=== PATIENT | male | born 1975 | race Hispanic/Latino ===

== ENCOUNTER 2021-05-07 08:36 | Outpatient (CLI) | payer OTHER | END 2021-05-07 08:37 | disposition home or self-care (01) | LOC: BICULT 08:36 | PROVIDERS: ATTEND Internal Medicine Gastroenterology | DX: R94.5 Abnormal results of liver function studies (principal); K72.90 Hepatic failure, unspecified without coma; I85.00 Esophageal varices without bleeding; F10.10 Alcohol abuse, uncomplicated; R16.1 Splenomegaly, not elsewhere classified; R18.8 Other ascites; R93.2 Abnormal findings on diagnostic imaging of liver and biliary tract | CPT/HCPCS: 76705 ==

== ENCOUNTER 2021-05-11 08:12 | Outpatient (CLI) | payer SELFPAY ==
[2021-05-11 21:09] LABS: SARS-CoV-2 PCR by NAA Not Detected (NotDetected)
== END 2021-05-11 08:13 | disposition home or self-care (01) ==
LOC: LABBT 08:12
PROVIDERS: ATTEND Internal Medicine Gastroenterology
DX: Z01.812 Encounter for preprocedural laboratory examination (principal); Z20.822 Contact with and (suspected) exposure to COVID-19
CPT/HCPCS: U0003; U0005

== ENCOUNTER 2021-05-16 06:13 | Day surgery (SDC) | payer OTHER, SELFPAY ==
[2021-05-15 13:31] VITALS: BMI 26.6
[2021-05-16] MEDS ORDERED: PROPOFOL 200 MG/20 ML VIAL ONE (08:26)
[2021-05-16] MEDS ORDERED: Lidocaine 1% PF 5 ML VIAL ONE (08:26)
[2021-05-16 09:25] LABS: #Eosinphils 0.1 thou/uL (0.0-0.7); #Lymphocytes 0.7 thou/uL (1.20-3.40); #Monocytes 0.2 thou/uL (0.11-0.59); #Neutrophils 1.4 thou/uL (1.40-6.50); %Basophils 1.4 % (0.0-1.0); %Eosinophils 5.6 % (0.0-10.0); %Lymphocytes 28.5 % (21.0-51.0); %Monocytes 7.2 % (0.0-10.0); %Neutrophils 57.4 % (42.0-75.0); Reflex for Review?? YES
[2021-05-16 09:26] LABS: Hemoglobin 9.6 g/dL (14.0-18.0); Mean Corpuscular HGB CONC 34.5 g/dL (32.0-36.0); Mean Corpuscular Hemoglobin 30.9 pg (27.0-31.0); Mean Corpuscular Volume 89.4 fL (78.0-98.0); Platelet Count 27 thou/uL (130-400); RBC Distribution Width 12.6 % (11.5-14.5); White Blood Cell (WBC) Count 2.5 thou/uL (4.8-10.8)
[2021-05-16 09:34] LABS: INR-International Normal Ratio 1.5; Prothrombin Time 18.1 sec (12.0-14.7)
[2021-05-16 09:35] LABS: PTT 41.9 sec (22.9-36.1)
[2021-05-16 09:46] LABS: ALT (SGPT) 32 U/L (8-55); AST (SGOT) 54 U/L (5-34); Albumin 2.5 g/dL (3.5-5.0); Alkaline Phosphatase 181 U/L (40-110); Anion Gap 9 mmol/L (10-20); BUN (Urea Nitrogen) 10 mg/dL (8.9-20.6); Bilirubin, Total 2.2 mg/dL (0.2-1.2); Calc. Creatinine Clearance 158 mL/min (70-130); Calcium 8.1 mg/dL (7.8-10.44); Carbon Dioxide 22 mmol/L (22-29); Chloride 111 mmol/L (98-107); Globulin 3.6 g/dL (2.4-3.5); Glucose 105 mg/dL (70-105); Potassium 3.9 mmol/L (3.5-5.1); Protein, Total 6.1 g/dL (6.0-8.3); Sodium 138 mmol/L (136-145)
[2021-05-16 10:41] LABS: Polychromasia SLIGHT = 2-3 cells (100X) (0-2/hpf)
[2021-05-16 10:42] LABS: Ovalocytes SLIGHT = 2-5 cells (100X) (0-1/hpf); Platelet Morphology Comment Appears Decreased
== END 2021-05-16 09:45 | disposition home or self-care (01) ==
LOC: SDC 06:13
PROVIDERS: ATTEND Internal Medicine Gastroenterology
PROC: 06L38CZ Occlusion of Esophageal Vein with Extraluminal Device, Via Natural or Artificial Opening Endoscopic (ICD-10-PCS; principal; 2021-05-16)
DX: I85.00 Esophageal varices without bleeding (principal); K76.6 Portal hypertension; K31.89 Other diseases of stomach and duodenum; Z79.899 Other long term (current) drug therapy
CPT/HCPCS: 36415; 80053; 85025; 85060; 85610; 85730; J2704

== ENCOUNTER 2021-11-24 08:57 | Inpatient (IN) | payer SELFPAY ==
[2021-11-24 09:46] LABS: #Eosinphils 0.2 thou/uL (0.0-0.7); #Lymphocytes 0.8 thou/uL (1.20-3.40); #Monocytes 0.2 thou/uL (0.11-0.59); #Neutrophils 1.2 thou/uL (1.40-6.50); %Eosinophils 7.1 % (0.0-10.0); %Lymphocytes 35.1 % (21.0-51.0); %Monocytes 7.1 % (0.0-10.0); %Neutrophils 50.7 % (42.0-75.0); Hemoglobin 6.8 g/dL (14.0-18.0); Mean Corpuscular HGB CONC 30.3 g/dL (32.0-36.0); Mean Corpuscular Hemoglobin 21.5 pg (27.0-31.0); Mean Corpuscular Volume 71.2 fL (78.0-98.0); RBC Distribution Width 17.2 % (11.5-14.5); Red Blood Cell (RBC) Count 3.14 mill/uL (4.70-6.10); White Blood Cell (WBC) Count 2.3 thou/uL (4.8-10.8)
[2021-11-24 09:59] LABS: ALT (SGPT) 28 U/L (8-55); AST (SGOT) 51 U/L (5-34); Albumin 2.5 g/dL (3.5-5.0); Alkaline Phosphatase 153 U/L (40-110); Anion Gap 10 mmol/L (10-20); BUN (Urea Nitrogen) 6 mg/dL (8.9-20.6); Bilirubin, Total 2.5 mg/dL (0.2-1.2); CK (CPK) 168 U/L (30-200); Calc. Creatinine Clearance 0 mL/min (70-130); Calcium 7.5 mg/dL (7.8-10.44); Carbon Dioxide 20 mmol/L (22-29); Chloride 112 mmol/L (98-107); Globulin 3.2 g/dL (2.4-3.5); Glucose 88 mg/dL (70-105); Hypochromia SLIGHT = 6-15 cells (100X) (0-5/hpf); Lipase 51 U/L (8-78); MDiff Complete? YES; Mean Platelet Volume 7.7 fL (7.4-10.4); Microcytosis SLIGHT = 6-15 cells (100X) (0-5/hpf); Platelet Count 31 thou/uL (130-400); Platelet Morphology Comment Appears Decreased; Polychromasia SLIGHT = 2-3 cells (100X) (0-2/hpf); Potassium 3.7 mmol/L (3.5-5.1); Protein, Total 5.7 g/dL (6.0-8.3); Sodium 138 mmol/L (136-145)
[2021-11-24 10:14] LABS: Bilirubin Negative (Negative); Blood, Urine Negative (Negative); Clarity Clear (Clear); Glucose, Urine (Dipstick) Normal (Negative); Ketone, Urine Negative (Negative); Leukocyte Negative Leu/uL (Negative); Nitrite Negative (Negative); Protein, Urine (Dipstick) Negative (Neg-Trace); Specific Gravity, Urine 1.019 (1.002-1.036); Urobilinogen 6 mg/dL (Less than 2)
[2021-11-24] MEDS ORDERED: Calcium Carbonate 500 MG ChewTAB PO PRN (11:14)
[2021-11-24] MEDS ORDERED: Ondansetron PF 4 MG/2 ML Vial IVP PRN (11:14)
[2021-11-24] MEDS ORDERED: Senokot S 8.6-50 MG TAB PO PRN (11:14)
[2021-11-24] MEDS ORDERED: Pantoprazole 40 MG VIAL ONE (12:38)
[2021-11-24 14:46] VITALS: BMI 29.9
[2021-11-24 15:15] LABS: Reticulocyte Count 2.6 % (0.5-1.5)
[2021-11-24 15:17] LABS: Hemoglobin 7.3 g/dL (14.0-18.0); Platelet Count 30 thou/uL (130-400)
[2021-11-24 15:21] LABS: INR-International Normal Ratio 1.8; Prothrombin Time 20.9 sec (12.0-14.7)
[2021-11-24 15:26] LABS: Iron 34 ug/dL (65-175); Iron Binding Capacity, Total 343 mcg/dL (261-462)
[2021-11-24 15:50] LABS: Ferritin 7.73 ng/mL (22-322)
[2021-11-24 19:02] LABS: Hemoglobin 6.6 g/dL (14.0-18.0)
[2021-11-24] MEDS ORDERED: GoLYTELY 4,000 ml Bottle PO SCH (20:15)
[2021-11-24] MEDS ORDERED: Phytonadione 10 MG in Sodium Chloride 0.9% 50 ML IVPB SCH (20:15)
[2021-11-24] MEDS: Pantoprazole 40 MG VIAL IVP SCH (20:20)
[2021-11-24 21:35] LABS: Hemoglobin 6.5 g/dL (14.0-18.0); Platelet Count 27 thou/uL (130-400)
[2021-11-25 04:51] LABS: ALT (SGPT) 30 U/L (8-55); AST (SGOT) 50 U/L (5-34); Albumin 2.5 g/dL (3.5-5.0); Alkaline Phosphatase 147 U/L (40-110); Anion Gap 11 mmol/L (10-20); BUN (Urea Nitrogen) 8 mg/dL (8.9-20.6); Bilirubin, Total 2.9 mg/dL (0.2-1.2); Calc. Creatinine Clearance 155 mL/min (70-130); Calcium 7.7 mg/dL (7.8-10.44); Carbon Dioxide 20 mmol/L (22-29); Chloride 112 mmol/L (98-107); Globulin 3.2 g/dL (2.4-3.5); Glucose 87 mg/dL (70-105); Potassium 4.4 mmol/L (3.5-5.1); Protein, Total 5.7 g/dL (6.0-8.3); Sodium 139 mmol/L (136-145)
[2021-11-25 05:16] LABS: #Eosinphils 0.2 thou/uL (0.0-0.7); #Monocytes 0.2 thou/uL (0.11-0.59); #Neutrophils 1.4 thou/uL (1.40-6.50); %Basophils 0.3 % (0.0-1.0); %Eosinophils 8.8 % (0.0-10.0); %Lymphocytes 35.2 % (21.0-51.0); %Neutrophils 48.7 % (42.0-75.0); Anisocytosis SLIGHT = 6-15 cells (100X) (0-5/hpf); Hemoglobin 7.6 g/dL (14.0-18.0); MDiff Complete? YES; Mean Corpuscular HGB CONC 30.3 g/dL (32.0-36.0); Mean Corpuscular Hemoglobin 22.4 pg (27.0-31.0); Mean Corpuscular Volume 74.1 fL (78.0-98.0); Mean Platelet Volume 5.8 fL (7.4-10.4); Ovalocytes SLIGHT = 2-5 cells (100X) (0-1/hpf); Platelet Count 34 thou/uL (130-400); Platelet Morphology Comment Appears Decreased; RBC Distribution Width 19.7 % (11.5-14.5); White Blood Cell (WBC) Count 2.8 thou/uL (4.8-10.8)
[2021-11-25 07:30] LABS: SARS-CoV-2 NAA Rapid Test Not Detected (NotDetected)
[2021-11-25 08:57] LABS: Iron 26 ug/dL (65-175); Iron Binding Capacity, Total 350 mcg/dL (261-462)
[2021-11-25] MEDS ORDERED: Lidocaine 1% PF 5 ML VIAL ONE (10:00)
[2021-11-25] MEDS ORDERED: PROPOFOL 200 MG/20 ML VIAL ONE (10:09)
[2021-11-25] MEDS: Pantoprazole 40 MG VIAL IVP SCH ×2 (11:28→19:47)
[2021-11-25 13:43] LABS: Hemoglobin 7.5 g/dL (14.0-18.0); Platelet Count 24 thou/uL (130-400)
[2021-11-25] MEDS ORDERED: Iron, Sodium Ferric Gluconate 250 MG in Sodium Chloride 0.9% 250 ML 250 ML IVPB SCH (15:15)
[2021-11-25] MEDS: Rifaximin 550 MG TAB PO SCH (19:47)
[2021-11-26 04:49] LABS: #Eosinphils 0.2 thou/uL (0.0-0.7); #Lymphocytes 0.8 thou/uL (1.20-3.40); #Monocytes 0.2 thou/uL (0.11-0.59); #Neutrophils 2.1 thou/uL (1.40-6.50); %Basophils 0.6 % (0.0-1.0); %Eosinophils 6.6 % (0.0-10.0); %Monocytes 7.1 % (0.0-10.0); %Neutrophils 61.8 % (42.0-75.0); Hemoglobin 7.5 g/dL (14.0-18.0); Hypochromia SLIGHT = 6-15 cells (100X) (0-5/hpf); MDiff Complete? YES; Mean Corpuscular HGB CONC 30.1 g/dL (32.0-36.0); Mean Corpuscular Hemoglobin 22.2 pg (27.0-31.0); Mean Corpuscular Volume 73.7 fL (78.0-98.0); Mean Platelet Volume 5.7 fL (7.4-10.4); Microcytosis SLIGHT = 6-15 cells (100X) (0-5/hpf); Platelet Count 35 thou/uL (130-400); Platelet Morphology Comment Appears Decreased; RBC Distribution Width 18.8 % (11.5-14.5); Red Blood Cell (RBC) Count 3.39 mill/uL (4.70-6.10); White Blood Cell (WBC) Count 3.4 thou/uL (4.8-10.8)
[2021-11-26] MEDS ORDERED: Iron Sucrose Complex 200 MG in Sodium Chloride 0.9% 100 ML IVPB SCH (08:00)
[2021-11-26] MEDS ORDERED: Spironolactone 25 MG TAB PO SCH (08:00)
[2021-11-26] MEDS ORDERED: Iron, Sodium Ferric Gluconate 250 MG in Sodium Chloride 0.9% 250 ML 250 ML IVPB SCH (08:00)
[2021-11-26] MEDS ORDERED: Sodium Bicarbonate 2.5 MEQ/5 ML VIAL ONE (08:47)
[2021-11-26] MEDS ORDERED: Lidocaine 1% PF 5 ML VIAL ONE (08:47)
[2021-11-26] MEDS ORDERED: Furosemide 20 MG TAB PO SCH (09:00)
[2021-11-26] MEDS: Pantoprazole 40 MG VIAL IVP SCH (09:42)
[2021-11-26] MEDS: Rifaximin 550 MG TAB PO SCH (09:42)
[2021-11-26 11:18] LABS: RBC Count-Automated (BF) 813 /cu.mm; WBC/Nucleated-Auto (BF) 93 /cu.mm
[2021-11-26 11:32] LABS: BF Color Yellow; Body Fluid Source Ascites Body Fluid; Clarity Hazy (Clear); Tube # EDTA
[2021-11-26 12:12] LABS: BF Segmented Neutrophils 2 %; Cell Count Non Hematic 48 %; Eosinophils 1 %; Lymphocytes 49 %
[2021-11-26 13:25] VITALS: BP 121/70; TEMP 97.6
== END 2021-11-26 16:06 | disposition home or self-care (01) | DRG 809 ==
LOC: ERS 08:57 → 2NO 10:51
PROVIDERS: ADMIT Family Medicine; ATTEND Internal Medicine
PROC: 30233N1 Transfusion of Nonautologous Red Blood Cells into Peripheral Vein, Percutaneous Approach (ICD-10-PCS; principal; 2021-11-24)
PROC: 0DBM8ZZ Excision of Descending Colon, Via Natural or Artificial Opening Endoscopic (ICD-10-PCS; 2021-11-25)
PROC: 0DJ08ZZ Inspection of Upper Intestinal Tract, Via Natural or Artificial Opening Endoscopic (ICD-10-PCS; 2021-11-25)
PROC: 0W9G3ZX Drainage of Peritoneal Cavity, Percutaneous Approach, Diagnostic (ICD-10-PCS; 2021-11-26)
DX: D61.818 Other pancytopenia (principal); K76.6 Portal hypertension; I85.10 Secondary esophageal varices without bleeding; K92.2 Gastrointestinal hemorrhage, unspecified; K70.31 Alcoholic cirrhosis of liver with ascites; Z20.822 Contact with and (suspected) exposure to COVID-19; F10.10 Alcohol abuse, uncomplicated; D50.9 Iron deficiency anemia, unspecified; K31.89 Other diseases of stomach and duodenum; Z79.899 Other long term (current) drug therapy; Z98.890 Other specified postprocedural states; Z87.891 Personal history of nicotine dependence
CPT/HCPCS: 36415; 36430; 49083; 71045; 76705; 80053; 81003; 82042; 82105; 82140; 82274; 82550; 82607; 82728; 82746; 83540; 83550; 83615; 83690; 84157; 84484; 85025; 85046; 85060; 85610; 86850; 86900; 86901; 87070; 87205; 88305; 89051; 93005; 96374; C9113; J2704; J2916; J3430; J7050; P9016; U0002; U0003; U0005

== ENCOUNTER 2022-01-22 15:49 | Outpatient (CLI) | payer SELFPAY | END 2022-01-22 15:50 | disposition home or self-care (01) | LOC: LABBT 15:49 | PROVIDERS: ATTEND Internal Medicine Gastroenterology | DX: Z20.822 Contact with and (suspected) exposure to COVID-19 (principal) | CPT/HCPCS: 87811 ==

== ENCOUNTER 2025-03-18 23:03 | Emergency (ER) | payer SELFPAY ==
[2025-03-19 01:00] LABS: ALT (SGPT) 41 U/L (Less than 45); AST (SGOT) 75 U/L (11-34); Albumin 3.0 g/dL (3.1-4.5); Alkaline Phosphatase 139 U/L (40-110); Anion Gap 11 mmol/L (10-20); BUN (Urea Nitrogen) 9 mg/dL (8.9-20.6); Bilirubin, Total 1.6 mg/dL (0.3-1.2); Calc. Creatinine Clearance 0 mL/min (70-130); Calcium 8.1 mg/dL (7.8-10.44); Carbon Dioxide 19 mmol/L (22-29); Chloride 110 mmol/L (98-107); Globulin 3.6 g/dL (2.4-3.5); Glucose 106 mg/dL (70-105); Potassium 3.7 mmol/L (3.5-5.1); Sodium 136 mmol/L (136-145)
[2025-03-19] MEDS ORDERED: VANCOMYCIN 2 GRAM/400 ML Premix BAG IVPB SCH (01:15)
[2025-03-19 01:18] LABS: #Basophils Less than 0.03 10x3/uL (0.0-0.2); #Eosinophils 0.20 10x3/uL (0.0-0.7); #Monocytes 0.30 10x3/uL (0.11-0.59); #Neutrophils 1.84 10x3/uL (1.40-6.50); %Basophils 0.3 % (0.0-1.0); %Eosinophils 6.4 % (0.0-10.0); %Lymphocytes 24.8 % (21.0-51.0); %Monocytes 9.6 % (0.0-10.0); %Neutrophils 58.6 % (42.0-75.0); Hematocrit 36.0 % (42.0-52.0); Hemoglobin 11.1 g/dL (14.0-18.0); Mean Corpuscular Hemoglobin 23.8 pg (27.0-31.0); Mean Corpuscular Volume 77.3 fL (78.0-98.0); Platelet Count 33 10x3/uL (130-400); Red Blood Cell (RBC) Count 4.66 mill/uL (4.70-6.10); White Blood Cell (WBC) Count 3.14 10x3/uL (4.8-10.8)
[2025-03-19] MEDS ORDERED: Ketorolac Tromethamine 30 MG (1 mL) VIAL ONE (01:22)
[2025-03-19] MEDS ORDERED: Clindamycin/D5W 900 MG in Premix 1 BAG IVPB SCH (04:15)
[2025-03-19] MEDS ORDERED: Iopamidol-370 76% 500 ML MDV (1 ML CHARGE) ONE (15:58)
== END 2025-03-19 07:16 | disposition home or self-care (01) ==
LOC: ERS 23:03
DX: L03.116 Cellulitis of left lower limb (principal)
CPT/HCPCS: 36415; 80053; 82550; 83605; 85025; 86141; 87040; 96365; 96375; J1885; J2543; J3490; Q9967

== ENCOUNTER 2025-03-31 12:11 | Inpatient (IN) | payer MEDICAID, SELFPAY ==
[~2025-03-31 12:11] MED LIST: Iopamidol-370 76% 500 ML MDV (1 ML CHARGE) ONE
[2025-03-31] MEDS ORDERED: Cefepime 2 GM VIAL ONE (13:18)
[2025-03-31 13:43] LABS: Hematocrit 32.2 % (42.0-52.0); Hemoglobin 10.4 g/dL (14.0-18.0); Mean Corpuscular Hemoglobin 23.9 pg (27.0-31.0); Mean Corpuscular Volume 73.9 fL (78.0-98.0); Platelet Count 23 10x3/uL (130-400); Red Blood Cell (RBC) Count 4.36 mill/uL (4.70-6.10); White Blood Cell (WBC) Count 6.97 10x3/uL (4.8-10.8)
[2025-03-31 13:45] LABS: ALT (SGPT) 46 U/L (Less than 45); AST (SGOT) 78 U/L (11-34); Albumin 2.7 g/dL (3.1-4.5); Alkaline Phosphatase 158 U/L (40-110); Anion Gap 9 mmol/L (10-20); BUN (Urea Nitrogen) 12 mg/dL (8.9-20.6); Bilirubin, Total 2.3 mg/dL (0.3-1.2); Calc. Creatinine Clearance 0 mL/min (70-130); Calcium 8.1 mg/dL (7.8-10.44); Carbon Dioxide 17 mmol/L (22-29); Chloride 110 mmol/L (98-107); Globulin 3.4 g/dL (2.4-3.5); Glucose 120 mg/dL (70-105); Lipase 32 U/L (8-78); Magnesium 1.5 mg/dL (1.6-2.6); Potassium 3.5 mmol/L (3.5-5.1); Sodium 132 mmol/L (136-145)
[2025-03-31] MEDS ORDERED: Magnesium 2 GM/50 ML BAG (IN WATER) ONE (14:09)
[2025-03-31 14:15] LABS: Anisocytosis SLIGHT = 6-15 cells HPF (0-5); Ovalocytes SLIGHT = 2-5 cells HPF (0-1); Platelet Adequacy Comment Platelets Decreased; Polychromasia SLIGHT = 2-3 cells HPF (0-2); Smudge Cells 1.0 %
[2025-03-31] MEDS ORDERED: VANCOMYCIN 2 GRAM/400 ML BAG ONE (15:16)
[2025-03-31] MEDS ORDERED: Melatonin 3 MG TAB PO PRN (15:27)
[2025-03-31 15:58] LABS: Bacteria/HPF None Seen HPF (None Seen); CAUTI Indications for Culture Pelvic or flank pain; Glucose, Urine (Dipstick) Normal (Negative); Leukocyte Negative Leu/uL (Negative); Protein, Urine (Dipstick) Negative (Neg-Trace); RBC/HPF 0-3 HPF (0-3); Specific Gravity, Urine Greater than 1.050 (1.002-1.036); WBC/HPF 0-3 HPF (0-3)
[2025-03-31 16:00] LABS: Urine Culture Reflex No No
[2025-03-31] MEDS: Acetaminophen 325 MG TAB PO PRN (16:44)
[2025-03-31] MEDS: VANCOMYCIN 2 GRAM/400 ML Premix BAG IVPB SCH (16:56)
[2025-03-31 19:16] LABS: Influenza A by NAA Not Detected (NotDetected); Influenza B by NAA Not Detected (NotDetected); SARS-CoV-2 NAA Rapid Test Not Detected (NotDetected)
[2025-03-31] MEDS: Vancomycin 1 GM in Premix 1 BAG IVPB SCH (23:25)
[2025-04-01 05:56] LABS: #Basophils Less than 0.03 10x3/uL (0.0-0.2); #Eosinophils Less than 0.03 10x3/uL (0.0-0.7); #Monocytes 0.21 10x3/uL (0.11-0.59); #Neutrophils 2.86 10x3/uL (1.40-6.50); %Basophils 0.0 % (0.0-1.0); %Eosinophils 0.0 % (0.0-10.0); %Lymphocytes 9.4 % (21.0-51.0); %Monocytes 6.2 % (0.0-10.0); %Neutrophils 84.1 % (42.0-75.0); Hematocrit 31.3 % (42.0-52.0); Hemoglobin 9.9 g/dL (14.0-18.0); Mean Corpuscular Hemoglobin 23.5 pg (27.0-31.0); Mean Corpuscular Volume 74.2 fL (78.0-98.0); Platelet Count 18 10x3/uL (130-400); Red Blood Cell (RBC) Count 4.22 mill/uL (4.70-6.10); White Blood Cell (WBC) Count 3.40 10x3/uL (4.8-10.8)
[2025-04-01 06:01] LABS: Vancomycin, Random 6.4 ug/mL (See Comment)
[2025-04-01 06:03] LABS: ALT (SGPT) 39 U/L (Less than 45); AST (SGOT) 60 U/L (11-34); Albumin 2.3 g/dL (3.1-4.5); Alkaline Phosphatase 110 U/L (40-110); Anion Gap 9 mmol/L (10-20); BUN (Urea Nitrogen) 12 mg/dL (8.9-20.6); Bilirubin, Total 2.6 mg/dL (0.3-1.2); Calc. Creatinine Clearance 157 mL/min (70-130); Calcium 7.1 mg/dL (7.8-10.44); Carbon Dioxide 16 mmol/L (22-29); Chloride 112 mmol/L (98-107); Globulin 3.0 g/dL (2.4-3.5); Glucose 109 mg/dL (70-105); Potassium 3.3 mmol/L (3.5-5.1); Sodium 134 mmol/L (136-145)
[2025-04-01] MEDS: Vancomycin 1.25 GM / NS 250 ML VIAL-2-BAG IVPB SCH (06:18)
[2025-04-01] MEDS: Enoxaparin 40 MG (0.4 mL) SYRINGE SC SCH (08:13)
[2025-04-01] MEDS ORDERED: HYDROcodone/Acetaminophen 5/325 mg Tablet PO PRN (09:53)
[2025-04-01] MEDS ORDERED: Electrolyte Replacement Protocol 1 EACH FS SCH (10:00)
[2025-04-01] MEDS: Lactulose 20 GM (30 mL) UDCUP PO SCH (15:06)
[2025-04-01] MEDS: Pantoprazole 40 MG DR.TAB PO SCH (20:37)
[2025-04-01] MEDS: Sodium Bicarbonate Tab 325 MG TAB PO SCH (20:37)
[2025-04-01] MEDS: Vancomycin 1.5 GM / NS 500 ML VIAL-2-BAG IVPB SCH (20:38)
[2025-04-02 05:40] LABS: #Basophils Less than 0.03 10x3/uL (0.0-0.2); #Eosinophils 0.07 10x3/uL (0.0-0.7); #Monocytes 0.24 10x3/uL (0.11-0.59); #Neutrophils 3.49 10x3/uL (1.40-6.50); %Basophils 0.2 % (0.0-1.0); %Eosinophils 1.6 % (0.0-10.0); %Lymphocytes 12.9 % (21.0-51.0); %Monocytes 5.4 % (0.0-10.0); %Neutrophils 79.2 % (42.0-75.0); Hematocrit 32.8 % (42.0-52.0); Hemoglobin 10.2 g/dL (14.0-18.0); Mean Corpuscular Hemoglobin 23.4 pg (27.0-31.0); Mean Corpuscular Volume 75.4 fL (78.0-98.0); Platelet Count 34 10x3/uL (130-400); Red Blood Cell (RBC) Count 4.35 mill/uL (4.70-6.10); White Blood Cell (WBC) Count 4.41 10x3/uL (4.8-10.8)
[2025-04-02 05:47] LABS: INR-International Normal Ratio 1.5; Prothrombin Time 18.4 sec (12.0-14.7)
[2025-04-02 06:07] LABS: CRP, High Sensitivity at Bryan 7.54 mg/dL (< or = 0.5)
[2025-04-02 06:08] LABS: ALT (SGPT) 33 U/L (Less than 45); AST (SGOT) 48 U/L (11-34); Albumin 2.5 g/dL (3.1-4.5); Alkaline Phosphatase 117 U/L (40-110); Anion Gap 9 mmol/L (10-20); BUN (Urea Nitrogen) 11 mg/dL (8.9-20.6); Bilirubin, Total 1.9 mg/dL (0.3-1.2); Calc. Creatinine Clearance 171 mL/min (70-130); Calcium 7.3 mg/dL (7.8-10.44); Carbon Dioxide 16 mmol/L (22-29); Chloride 111 mmol/L (98-107); Globulin 3.2 g/dL (2.4-3.5); Glucose 102 mg/dL (70-105); Potassium 3.9 mmol/L (3.5-5.1); Sodium 132 mmol/L (136-145)
[2025-04-02] MEDS: Nadolol 40 MG TAB PO SCH (09:06)
[2025-04-02] MEDS: Ferrous Sulfate 325 MG TAB PO SCH (09:06)
[2025-04-02] MEDS: Furosemide 40 MG (4 mL) VIAL SLOW IVP SCH (13:59)
[2025-04-03] MEDS: Albumin 25% 25 GM (100 mL) BOT IVPB SCH (01:14)
[2025-04-03 02:46] LABS: #Basophils Less than 0.03 10x3/uL (0.0-0.2); #Eosinophils 0.06 10x3/uL (0.0-0.7); #Monocytes 0.32 10x3/uL (0.11-0.59); #Neutrophils 3.00 10x3/uL (1.40-6.50); %Basophils 0.5 % (0.0-1.0); %Eosinophils 1.5 % (0.0-10.0); %Lymphocytes 15.9 % (21.0-51.0); %Monocytes 7.8 % (0.0-10.0); %Neutrophils 73.3 % (42.0-75.0); Hematocrit 27.7 % (42.0-52.0); Hemoglobin 8.6 g/dL (14.0-18.0); Mean Corpuscular Hemoglobin 23.4 pg (27.0-31.0); Mean Corpuscular Volume 75.3 fL (78.0-98.0); Platelet Count 32 10x3/uL (130-400); Red Blood Cell (RBC) Count 3.68 mill/uL (4.70-6.10); White Blood Cell (WBC) Count 4.09 10x3/uL (4.8-10.8)
[2025-04-03 04:08] LABS: Vancomycin, Random 22.1 ug/mL (See Comment)
[2025-04-03 04:14] LABS: ALT (SGPT) 27 U/L (Less than 45); AST (SGOT) 36 U/L (11-34); Albumin 2.4 g/dL (3.1-4.5); Alkaline Phosphatase 90 U/L (40-110); Anion Gap 15 mmol/L (10-20); BUN (Urea Nitrogen) 20 mg/dL (8.9-20.6); Bilirubin, Total 2.1 mg/dL (0.3-1.2); Calc. Creatinine Clearance 85 mL/min (70-130); Calcium 7.0 mg/dL (7.8-10.44); Carbon Dioxide 15 mmol/L (22-29); Chloride 104 mmol/L (98-107); Globulin 2.8 g/dL (2.4-3.5); Glucose 113 mg/dL (70-105); Potassium 3.9 mmol/L (3.5-5.1); Sodium 130 mmol/L (136-145)
[2025-04-03] MEDS: NOREPINEPHRINE 8 MG/250 ML-D5W 250 ML IVPB SCH (05:00)
[2025-04-03] MEDS ORDERED: Albumin 25% 25 GM (100 mL) BOT IVPB SCH (06:00)
[2025-04-03] MEDS: PNEUMOC 20-VAL CONJ-DIP CRM/PF 0.5 ML SYRINGE IM ONE (07:22)
[2025-04-03 08:57] LABS: Iron 36 ug/dL (65-175); Iron Binding Capacity, Total 259 mcg/dL (261-462)
[2025-04-03] MEDS: Furosemide 40 MG (4 mL) VIAL SLOW IVP SCH (09:17)
[2025-04-03 11:31] LABS: ALV-art Gradient 441.925 mmHg (0-20); Actual Bicarbonate (HCO3a) 18.3 mEq/L (22-28); Base Excess (BEa) -7.3 mEq/L (-2.0 to +3.0); CO2 Tension 37.5 mmHg (35.0-45.0); Calcium, Ionized (arterial) 1.08 mmol/L (1.12-1.30); Hematocrit-ABG 38 % (42.0-52.0); Hemoglobin (Hb) 12.9 g/dL (14.0-18.0); O2 Tension (PaO2), arterial 81.6 mmHg (80.0-100.0); Potassium - ABG Lab 4.14 mmol/L (3.70-5.30); Puncture Site Right Radial artery; pH, Arterial 7.306 (7.35-7.45)
[2025-04-04 03:59] LABS: Vancomycin, Random 9.3 ug/mL (See Comment)
[2025-04-04 04:03] LABS: ALT (SGPT) 23 U/L (Less than 45); AST (SGOT) 31 U/L (11-34); Albumin 2.5 g/dL (3.1-4.5); Alkaline Phosphatase 97 U/L (40-110); Anion Gap 12 mmol/L (10-20); BUN (Urea Nitrogen) 24 mg/dL (8.9-20.6); Bilirubin, Total 3.2 mg/dL (0.3-1.2); Calc. Creatinine Clearance 120 mL/min (70-130); Calcium 7.4 mg/dL (7.8-10.44); Carbon Dioxide 16 mmol/L (22-29); Chloride 105 mmol/L (98-107); Globulin 3.1 g/dL (2.4-3.5); Glucose 111 mg/dL (70-105); Potassium 3.7 mmol/L (3.5-5.1); Sodium 129 mmol/L (136-145)
[2025-04-04 04:08] LABS: #Basophils 0.03 10x3/uL (0.0-0.2); #Eosinophils 0.05 10x3/uL (0.0-0.7); #Monocytes 0.64 10x3/uL (0.11-0.59); #Neutrophils 6.04 10x3/uL (1.40-6.50); %Basophils 0.4 % (0.0-1.0); %Eosinophils 0.6 % (0.0-10.0); %Lymphocytes 12.2 % (21.0-51.0); %Monocytes 8.2 % (0.0-10.0); %Neutrophils 77.8 % (42.0-75.0); Hematocrit 33.4 % (42.0-52.0); Hemoglobin 10.6 g/dL (14.0-18.0); Mean Corpuscular Hemoglobin 23.2 pg (27.0-31.0); Mean Corpuscular Volume 73.1 fL (78.0-98.0); Platelet Count 53 10x3/uL (130-400); Red Blood Cell (RBC) Count 4.57 mill/uL (4.70-6.10); White Blood Cell (WBC) Count 7.77 10x3/uL (4.8-10.8)
[2025-04-04] MEDS: Vancomycin 1.5 GM / NS 500 ML VIAL-2-BAG IVPB SCH (08:29)
[2025-04-04] MEDS: Sodium Bicarb 50 MEQ/50 ML Abboject 8.4% SYRINGE IVP SCH (10:17)
[2025-04-04] MEDS ORDERED: Benzocaine/Menthol 1 LOZ LOZ PO PRN (21:10)
[2025-04-04] MEDS: Furosemide 20 MG (2 mL) VIAL SLOW IVP SCH (21:24)
[2025-04-04] MEDS: Vancomycin 1.25 GM / NS 250 ML VIAL-2-BAG IVPB SCH (21:40)
[2025-04-05 03:35] LABS: #Basophils Less than 0.03 10x3/uL (0.0-0.2); #Eosinophils 0.12 10x3/uL (0.0-0.7); #Monocytes 0.21 10x3/uL (0.11-0.59); #Neutrophils 2.14 10x3/uL (1.40-6.50); %Basophils 0.3 % (0.0-1.0); %Eosinophils 4.0 % (0.0-10.0); %Lymphocytes 16.0 % (21.0-51.0); %Monocytes 7.0 % (0.0-10.0); %Neutrophils 71.4 % (42.0-75.0); Hematocrit 28.3 % (42.0-52.0); Hemoglobin 9.0 g/dL (14.0-18.0); Mean Corpuscular Hemoglobin 23.5 pg (27.0-31.0); Mean Corpuscular Volume 73.9 fL (78.0-98.0); Platelet Count 31 10x3/uL (130-400); Red Blood Cell (RBC) Count 3.83 mill/uL (4.70-6.10); White Blood Cell (WBC) Count 3.00 10x3/uL (4.8-10.8)
[2025-04-05 03:38] LABS: INR-International Normal Ratio 1.7; Prothrombin Time 19.7 sec (12.0-14.7)
[2025-04-05 03:45] LABS: Vancomycin, Random 22.2 ug/mL (See Comment)
[2025-04-05 03:47] LABS: ALT (SGPT) 20 U/L (Less than 45); AST (SGOT) 33 U/L (11-34); Albumin 2.0 g/dL (3.1-4.5); Alkaline Phosphatase 78 U/L (40-110); Anion Gap 10 mmol/L (10-20); BUN (Urea Nitrogen) 24 mg/dL (8.9-20.6); Bilirubin, Total 2.8 mg/dL (0.3-1.2); Calc. Creatinine Clearance 146 mL/min (70-130); Calcium 7.0 mg/dL (7.8-10.44); Carbon Dioxide 17 mmol/L (22-29); Chloride 109 mmol/L (98-107); Globulin 2.7 g/dL (2.4-3.5); Glucose 116 mg/dL (70-105); Potassium 3.4 mmol/L (3.5-5.1); Sodium 133 mmol/L (136-145)
[2025-04-05] MEDS ORDERED: Furosemide 20 MG (2 mL) VIAL SLOW IVP SCH (09:00)
[2025-04-05] MEDS: Vancomycin 1.5 GM / NS 500ML VIAL-2-BAG IVPB SCH (09:45)
[2025-04-05] MEDS: Potassium Chloride 20 MEQ in Premix 1 BAG IVPB SCH (09:49)
[2025-04-05] MEDS: Furosemide 40 MG (4 mL) VIAL SLOW IVP SCH ×2 (09:50→13:57)
[2025-04-05] MEDS: Sodium Bicarb 50 MEQ/50 ML Abboject 8.4% SYRINGE IVP SCH (09:56)
[2025-04-05] MEDS: Pantoprazole 40 MG VIAL IVP SCH (09:57)
[2025-04-05] MEDS: Furosemide 40 MG (4 mL) VIAL ONE (11:40)
[2025-04-05] MEDS: Albumin 25% 25 GM (100 mL) BOT IVPB SCH ×2 (11:41→17:13)
[2025-04-05] MEDS: Azithromycin 500 MG in Sodium Chloride 0.9% 250 ML 250 ML IVPB SCH (11:42)
[2025-04-05] MEDS ORDERED: PROPOFOL 200 MG/20 ML VIAL ONE (12:30)
[2025-04-05] MEDS ORDERED: SUCCINYLCHOLINE/SOD CL,ISO/PF 200 MG/10 ML SYRINGE FS ONE (12:30)
[2025-04-05] MEDS: PROPOFOL 200 MG/20 ML VIAL IVP SCH (12:30)
[2025-04-05] MEDS: SUCCINYLCHOLINE/SOD CL,ISO/PF 200 MG/10 ML SYRINGE FS SCH (12:30)
[2025-04-05] MEDS: Acetylcysteine 10% 100 MG/ML (30 ml) SOLN INH SCH (12:37)
[2025-04-05] MEDS ORDERED: Ventilator Sedation Protocol 1 EACH FS SCH (12:45)
[2025-04-05] MEDS ORDERED: Acetylcysteine 10% 100 MG/ML (30 ml) SOLN INH SCH (13:00)
[2025-04-05] MEDS ORDERED: Propofol BOLUS 1,000 MG/100 ML VIAL IV PRN (13:15)
[2025-04-05] MEDS ORDERED: Fentanyl BOLUS 100 ML IVPB PRN (13:15)
[2025-04-05] MEDS: SUCCINYLCHOLINE/SOD CL,ISO/PF 200 MG/10 ML SYRINGE FS ONE (13:47)
[2025-04-05] MEDS: Ventilator Sedation Protocol 1 EACH FS ONE (13:51)
[2025-04-05 14:30] LABS: Actual Bicarbonate (HCO3a) 19.6 mEq/L (22-28); Base Excess (BEa) -4.9 mEq/L (-2.0 to +3.0); CO2 Tension 34.2 mmHg (35.0-45.0); Calcium, Ionized (arterial) 1.08 mmol/L (1.12-1.30); Hematocrit-ABG 30 % (42.0-52.0); Hemoglobin (Hb) 10.1 g/dL (14.0-18.0); O2 Tension (PaO2), arterial 78.6 mmHg (80.0-100.0); Potassium - ABG Lab 3.76 mmol/L (3.70-5.30); pH, Arterial 7.377 (7.35-7.45)
[2025-04-05 14:39] LABS: ALV-art Gradient 591.650 mmHg (0-20); Puncture Site Right Radial artery
[2025-04-06 04:09] LABS: #Basophils 0.04 10x3/uL (0.0-0.2); #Eosinophils 0.57 10x3/uL (0.0-0.7); #Monocytes 0.59 10x3/uL (0.11-0.59); #Neutrophils 4.82 10x3/uL (1.40-6.50); %Basophils 0.5 % (0.0-1.0); %Eosinophils 7.8 % (0.0-10.0); %Lymphocytes 15.6 % (21.0-51.0); %Monocytes 8.1 % (0.0-10.0); %Neutrophils 66.2 % (42.0-75.0); Hematocrit 32.4 % (42.0-52.0); Hemoglobin 9.9 g/dL (14.0-18.0); Mean Corpuscular Hemoglobin 23.4 pg (27.0-31.0); Mean Corpuscular Volume 76.6 fL (78.0-98.0); Platelet Count 75 10x3/uL (130-400); Red Blood Cell (RBC) Count 4.23 mill/uL (4.70-6.10); White Blood Cell (WBC) Count 7.29 10x3/uL (4.8-10.8)
[2025-04-06 04:56] LABS: ALT (SGPT) 21 U/L (Less than 45); AST (SGOT) 38 U/L (11-34); Albumin 3.0 g/dL (3.1-4.5); Alkaline Phosphatase 86 U/L (40-110); Anion Gap 14 mmol/L (10-20); BUN (Urea Nitrogen) 33 mg/dL (8.9-20.6); Bilirubin, Total 2.9 mg/dL (0.3-1.2); Calc. Creatinine Clearance 88 mL/min (70-130); Calcium 7.6 mg/dL (7.8-10.44); Carbon Dioxide 21 mmol/L (22-29); Chloride 107 mmol/L (98-107); Globulin 2.9 g/dL (2.4-3.5); Glucose 97 mg/dL (70-105); Potassium 3.9 mmol/L (3.5-5.1); Sodium 138 mmol/L (136-145)
[2025-04-06 08:11] LABS: Actual Bicarbonate (HCO3a) 21.3 mEq/L (22-28); Base Excess (BEa) -4.3 mEq/L (-2.0 to +3.0); CO2 Tension 41.4 mmHg (35.0-45.0); Calcium, Ionized (arterial) 1.07 mmol/L (1.12-1.30); Hematocrit-ABG 32 % (42.0-52.0); Hemoglobin (Hb) 11.0 g/dL (14.0-18.0); O2 Tension (PaO2), arterial 112.4 mmHg (80.0-100.0); Potassium - ABG Lab 3.73 mmol/L (3.70-5.30); pH, Arterial 7.330 (7.35-7.45)
[2025-04-06 08:22] LABS: ALV-art Gradient 263.650 mmHg (0-20); Puncture Site Left Brachial artery
[2025-04-06] MEDS: VANCOMYCIN 2 GRAM/400 ML BAG 2 GM in Premix 1 BAG IVPB SCH (09:44)
[2025-04-06 10:19] LABS: HIV (1/2) Antibody/Antigen NONREACTIVE (NonReactive); HIV 1/2 INDEX 0.08 S/CO (<1.00)
[2025-04-06] MEDS: Sodium Bicarbonate Tab 325 MG TAB PER TUBE SCH (21:22)
[2025-04-07 04:32] LABS: Vancomycin, Random 13.1 ug/mL (See Comment)
[2025-04-07 04:35] LABS: ALT (SGPT) 16 U/L (Less than 45); AST (SGOT) 36 U/L (11-34); Albumin 2.9 g/dL (3.1-4.5); Alkaline Phosphatase 66 U/L (40-110); Anion Gap 12 mmol/L (10-20); BUN (Urea Nitrogen) 33 mg/dL (8.9-20.6); Bilirubin, Total 2.0 mg/dL (0.3-1.2); Calc. Creatinine Clearance 117 mL/min (70-130); Calcium 7.8 mg/dL (7.8-10.44); Carbon Dioxide 22 mmol/L (22-29); Chloride 111 mmol/L (98-107); Globulin 2.6 g/dL (2.4-3.5); Glucose 93 mg/dL (70-105); Potassium 3.4 mmol/L (3.5-5.1); Sodium 142 mmol/L (136-145)
[2025-04-07 06:08] LABS: Hematocrit 29.1 % (42.0-52.0); Hemoglobin 8.7 g/dL (14.0-18.0); Mean Corpuscular Hemoglobin 23.3 pg (27.0-31.0); Mean Corpuscular Volume 78.0 fL (78.0-98.0); Platelet Count 43 10x3/uL (130-400); Red Blood Cell (RBC) Count 3.73 mill/uL (4.70-6.10); White Blood Cell (WBC) Count 1.95 10x3/uL (4.8-10.8)
[2025-04-07 06:51] LABS: Ovalocytes SLIGHT = 2-5 cells HPF (0-1); Platelet Adequacy Comment Platelets Decreased; Polychromasia SLIGHT = 2-3 cells HPF (0-2); Smudge Cells 13.6 %
[2025-04-07 07:56] LABS: Actual Bicarbonate (HCO3a) 23.3 mEq/L (22-28); Base Excess (BEa) -1.3 mEq/L (-2.0 to +3.0); CO2 Tension 38.6 mmHg (35.0-45.0); Calcium, Ionized (arterial) 1.13 mmol/L (1.12-1.30); Hematocrit-ABG 29 % (42.0-52.0); Hemoglobin (Hb) 9.8 g/dL (14.0-18.0); O2 Tension (PaO2), arterial 102.5 mmHg (80.0-100.0); Potassium - ABG Lab 3.48 mmol/L (3.70-5.30); pH, Arterial 7.399 (7.35-7.45)
[2025-04-07 07:58] LABS: ALV-art Gradient 205.750 mmHg (0-20); Puncture Site Left Brachial artery
[2025-04-07] MEDS: Magnesium 2 GM/50 ML(in water) 2 GM in Premix 1 BAG IVPB SCH (09:30)
[2025-04-07] MEDS: Scopolamine 1 mg/72 hour Patch TD SCH (09:30)
[2025-04-07] MEDS: Potassium Bicarbonate/Cit Ac 20 MEQ TAB PER TUBE SCH (09:31)
[2025-04-07] MEDS: Senokot S 8.6-50 MG TAB PER TUBE SCH (09:34)
[2025-04-07 09:45] LABS: Anisocytosis SLIGHT = 6-15 cells HPF (0-5); Macrocytosis SLIGHT = 6-15 cells HPF (0-5); Microcytosis SLIGHT = 6-15 cells HPF (0-5); Schistocytes SLIGHT = 2-5 cells HPF (0-1)
[2025-04-07] MEDS ORDERED: Vancomycin 1.5 GM / NS 500ML VIAL-2-BAG IVPB SCH (10:00)
[2025-04-07] MEDS: Vancomycin HCl 750 MG in Sodium Chloride 0.9% 250 ML 250 ML IVPB SCH ×2 (10:12→17:31)
[2025-04-07 14:53] LABS: Potassium 3.9 mmol/L (3.5-5.1)
[2025-04-08 04:43] LABS: Vancomycin, Random 29.2 ug/mL (See Comment)
[2025-04-08 04:45] LABS: ALT (SGPT) 17 U/L (Less than 45); AST (SGOT) 32 U/L (11-34); Albumin 2.7 g/dL (3.1-4.5); Alkaline Phosphatase 70 U/L (40-110); Anion Gap 11 mmol/L (10-20); BUN (Urea Nitrogen) 21 mg/dL (8.9-20.6); Bilirubin, Total 2.1 mg/dL (0.3-1.2); Calc. Creatinine Clearance 176 mL/min (70-130); Calcium 7.9 mg/dL (7.8-10.44); Carbon Dioxide 22 mmol/L (22-29); Chloride 113 mmol/L (98-107); Globulin 3.0 g/dL (2.4-3.5); Glucose 111 mg/dL (70-105); Magnesium 2.1 mg/dL (1.6-2.6); Potassium 3.6 mmol/L (3.5-5.1); Sodium 142 mmol/L (136-145)
[2025-04-08 05:02] LABS: Hematocrit 28.7 % (42.0-52.0); Hemoglobin 8.7 g/dL (14.0-18.0); Mean Corpuscular Hemoglobin 24.0 pg (27.0-31.0); Mean Corpuscular Volume 79.1 fL (78.0-98.0); Platelet Count 49 10x3/uL (130-400); Red Blood Cell (RBC) Count 3.63 mill/uL (4.70-6.10); Reflex for Review?? YES; White Blood Cell (WBC) Count 1.64 10x3/uL (4.8-10.8)
[2025-04-08 06:43] LABS: Anisocytosis SLIGHT = 6-15 cells HPF (0-5); Platelet Adequacy Comment Platelets Decreased; Polychromasia SLIGHT = 2-3 cells HPF (0-2); Smudge Cells 14.0 %
[2025-04-08] MEDS ORDERED: Vancomycin HCl 750 MG in Sodium Chloride 0.9% 250 ML 250 ML IVPB SCH (06:45)
[2025-04-08 08:21] LABS: Vancomycin, Random 19.9 ug/mL (See Comment)
[2025-04-08] MEDS: Vancomycin 1.25 GM / NS 250 ML VIAL-2-BAG IVPB SCH (10:34)
[2025-04-09 04:53] LABS: Hematocrit 28.0 % (42.0-52.0); Hemoglobin 8.3 g/dL (14.0-18.0); Mean Corpuscular Hemoglobin 24.1 pg (27.0-31.0); Mean Corpuscular Volume 81.2 fL (78.0-98.0); Platelet Count 47 10x3/uL (130-400); Red Blood Cell (RBC) Count 3.45 mill/uL (4.70-6.10); White Blood Cell (WBC) Count 1.59 10x3/uL (4.8-10.8)
[2025-04-09 05:14] LABS: ALT (SGPT) 15 U/L (Less than 45); AST (SGOT) 32 U/L (11-34); Albumin 2.5 g/dL (3.1-4.5); Alkaline Phosphatase 69 U/L (40-110); Anion Gap 10 mmol/L (10-20); BUN (Urea Nitrogen) 17 mg/dL (8.9-20.6); Bilirubin, Total 2.0 mg/dL (0.3-1.2); Calc. Creatinine Clearance 181 mL/min (70-130); Calcium 7.8 mg/dL (7.8-10.44); Carbon Dioxide 24 mmol/L (22-29); Chloride 113 mmol/L (98-107); Globulin 3.0 g/dL (2.4-3.5); Glucose 112 mg/dL (70-105); Potassium 3.5 mmol/L (3.5-5.1); Sodium 143 mmol/L (136-145)
[2025-04-09 05:19] LABS: Anisocytosis SLIGHT = 6-15 cells HPF (0-5); Ovalocytes SLIGHT = 2-5 cells HPF (0-1); Platelet Adequacy Comment Platelets Decreased; Polychromasia SLIGHT = 2-3 cells HPF (0-2); Smudge Cells 5.1 %
[2025-04-09] MEDS: Furosemide 20 MG (2 mL) VIAL SLOW IVP SCH ×2 (09:08→14:27)
[2025-04-09] MEDS: Potassium Bicarbonate/Cit Ac 20 MEQ TAB PER TUBE SCH (09:08)
[2025-04-09] MEDS: Lactulose 20 GM (30 mL) UDCUP PO PRN (12:14)
[2025-04-09 14:35] LABS: Iron 31 ug/dL (65-175); Iron Binding Capacity, Total 208 mcg/dL (261-462)
[2025-04-09 14:58] LABS: HBSAB Concentration Less than 8.00 mIU/mL; Hep B Core Total Ab NONREACTIVE (NonReactive); Hep B Core Total Index 0.59 S/CO (0-0.79); Hep B Surf Ag NONREACTIVE S/CO (NonReactive); Hep C IgG Ab NONREACTIVE S/CO (NonReactive); Hep C Index 0.24 S/CO (0-0.79)
[2025-04-09 15:24] LABS: Ferritin 107.63 ng/mL (22-322); Vitamin B12 270 pg/mL (211-911)
[2025-04-10 04:19] LABS: Vancomycin, Random 20.4 ug/mL (See Comment)
[2025-04-10 06:44] LABS: Actual Bicarbonate (HCO3a) 28.4 mEq/L (22-28); Base Excess (BEa) 2.5 mEq/L (-2.0 to +3.0); CO2 Tension 50.7 mmHg (35.0-45.0); Calcium, Ionized (arterial) 1.14 mmol/L (1.12-1.30); Hematocrit-ABG 29 % (42.0-52.0); Hemoglobin (Hb) 9.8 g/dL (14.0-18.0); O2 Tension (PaO2), arterial 64.6 mmHg (80.0-100.0); Potassium - ABG Lab 3.99 mmol/L (3.70-5.30); pH, Arterial 7.366 (7.35-7.45)
[2025-04-10 06:48] LABS: Puncture Site Right Radial artery
[2025-04-10 06:49] LABS: ALV-art Gradient 228.525 mmHg (0-20)
[2025-04-10 07:30] LABS: Anion Gap 11 mmol/L (10-20); BUN (Urea Nitrogen) 17 mg/dL (8.9-20.6); Calc. Creatinine Clearance 164 mL/min (70-130); Calcium 8.0 mg/dL (7.8-10.44); Carbon Dioxide 28 mmol/L (22-29); Chloride 107 mmol/L (98-107); Glucose 132 mg/dL (70-105); Potassium 3.9 mmol/L (3.5-5.1); Sodium 142 mmol/L (136-145)
[2025-04-10 07:36] LABS: Hematocrit 28.9 % (42.0-52.0); Hemoglobin 8.4 g/dL (14.0-18.0); Mean Corpuscular Hemoglobin 23.7 pg (27.0-31.0); Mean Corpuscular Volume 81.4 fL (78.0-98.0); Platelet Count 44 10x3/uL (130-400); Red Blood Cell (RBC) Count 3.55 mill/uL (4.70-6.10); White Blood Cell (WBC) Count 2.12 10x3/uL (4.8-10.8)
[2025-04-10 08:09] LABS: Ovalocytes SLIGHT = 2-5 cells HPF (0-1); Platelet Adequacy Comment Significant Decrease; Polychromasia SLIGHT = 2-3 cells HPF (0-2)
[2025-04-10 08:13] LABS: #Basophils Less than 0.03 10x3/uL (0.0-0.2); #Eosinophils 0.05 10x3/uL (0.0-0.7); #Monocytes 0.14 10x3/uL (0.11-0.59); #Neutrophils 1.65 10x3/uL (1.40-6.50); %Basophils 0.5 % (0.0-1.0); %Eosinophils 2.4 % (0.0-10.0); %Lymphocytes 9.7 % (21.0-51.0); %Monocytes 6.8 % (0.0-10.0); %Neutrophils 80.1 % (42.0-75.0)
[2025-04-10] MEDS: Potassium Bicarbonate/Cit Ac 20 MEQ TAB PO SCH (08:15)
[2025-04-10] MEDS: Vancomycin 1 GM in Premix 1 BAG IVPB SCH (20:33)
[2025-04-11] MEDS: NOREPINEPHRINE 8 MG/250 ML-D5W 250 ML IVPB SCH (02:51)
[2025-04-11] MEDS: NOREPINEPHRINE 8 MG/250 ML-D5W 250 ML ONE (02:51)
[2025-04-11] MEDS: Furosemide 20 MG (2 mL) VIAL SLOW IVP SCH (02:56)
[2025-04-11 04:12] LABS: Anion Gap 15 mmol/L (10-20); BUN (Urea Nitrogen) 26 mg/dL (8.9-20.6); Calc. Creatinine Clearance 131 mL/min (70-130); Calcium 8.0 mg/dL (7.8-10.44); Carbon Dioxide 24 mmol/L (22-29); Chloride 106 mmol/L (98-107); Glucose 123 mg/dL (70-105); Potassium 4.1 mmol/L (3.5-5.1); Sodium 141 mmol/L (136-145)
[2025-04-11 04:14] LABS: #Basophils Less than 0.03 10x3/uL (0.0-0.2); #Eosinophils 0.07 10x3/uL (0.0-0.7); #Monocytes 0.30 10x3/uL (0.11-0.59); #Neutrophils 2.33 10x3/uL (1.40-6.50); %Basophils 0.0 % (0.0-1.0); %Eosinophils 2.1 % (0.0-10.0); %Lymphocytes 18.3 % (21.0-51.0); %Monocytes 9.0 % (0.0-10.0); %Neutrophils 70.0 % (42.0-75.0); Hematocrit 31.8 % (42.0-52.0); Hemoglobin 9.5 g/dL (14.0-18.0); Mean Corpuscular Hemoglobin 23.8 pg (27.0-31.0); Mean Corpuscular Volume 79.7 fL (78.0-98.0); Platelet Count 46 10x3/uL (130-400); Red Blood Cell (RBC) Count 3.99 mill/uL (4.70-6.10); White Blood Cell (WBC) Count 3.33 10x3/uL (4.8-10.8)
[2025-04-12 03:41] LABS: Hematocrit 34.2 % (42.0-52.0); Hemoglobin 10.2 g/dL (14.0-18.0); Mean Corpuscular Hemoglobin 23.9 pg (27.0-31.0); Mean Corpuscular Volume 80.3 fL (78.0-98.0); Platelet Count 50 10x3/uL (130-400); Red Blood Cell (RBC) Count 4.26 mill/uL (4.70-6.10); White Blood Cell (WBC) Count 4.15 10x3/uL (4.8-10.8)
[2025-04-12 03:54] LABS: INR-International Normal Ratio 1.5; Prothrombin Time 18.3 sec (12.0-14.7)
[2025-04-12 03:55] LABS: PTT 43.5 sec (22.9-36.1)
[2025-04-12 04:08] LABS: ALT (SGPT) 29 U/L (Less than 45); AST (SGOT) 94 U/L (11-34); Albumin 2.6 g/dL (3.1-4.5); Alkaline Phosphatase 82 U/L (40-110); Anion Gap 11 mmol/L (10-20); BUN (Urea Nitrogen) 28 mg/dL (8.9-20.6); Bilirubin, Total 3.2 mg/dL (0.3-1.2); Calc. Creatinine Clearance 149 mL/min (70-130); Calcium 8.3 mg/dL (7.8-10.44); Carbon Dioxide 29 mmol/L (22-29); Chloride 105 mmol/L (98-107); Globulin 4.0 g/dL (2.4-3.5); Glucose 112 mg/dL (70-105); Potassium 4.1 mmol/L (3.5-5.1); Sodium 141 mmol/L (136-145)
[2025-04-12 04:17] LABS: Anisocytosis SLIGHT = 6-15 cells HPF (0-5); Macrocytosis SLIGHT = 6-15 cells HPF (0-5); Ovalocytes SLIGHT = 2-5 cells HPF (0-1); Platelet Adequacy Comment Platelets Decreased; Polychromasia SLIGHT = 2-3 cells HPF (0-2); Smudge Cells 21.2 %
[2025-04-12 05:02] VITALS: BMI 33.2
[2025-04-13 04:56] LABS: Anion Gap 14 mmol/L (10-20); BUN (Urea Nitrogen) 32 mg/dL (8.9-20.6); Calc. Creatinine Clearance 166 mL/min (70-130); Calcium 8.3 mg/dL (7.8-10.44); Carbon Dioxide 29 mmol/L (22-29); Chloride 104 mmol/L (98-107); Glucose 95 mg/dL (70-105); Hematocrit 30.5 % (42.0-52.0); Hemoglobin 9.2 g/dL (14.0-18.0); Mean Corpuscular Hemoglobin 24.1 pg (27.0-31.0); Mean Corpuscular Volume 80.1 fL (78.0-98.0); Platelet Count 47 10x3/uL (130-400); Potassium 4.2 mmol/L (3.5-5.1); Red Blood Cell (RBC) Count 3.81 mill/uL (4.70-6.10); Sodium 143 mmol/L (136-145); White Blood Cell (WBC) Count 2.97 10x3/uL (4.8-10.8)
[2025-04-13] MEDS ORDERED: Senokot S 8.6-50 MG TAB PER TUBE PRN (12:03)
[2025-04-13] MEDS: Lactulose 20 GM (30 mL) UDCUP PO SCH (13:49)
[2025-04-14 04:37] LABS: Hematocrit 31.1 % (42.0-52.0); Hemoglobin 9.3 g/dL (14.0-18.0); Mean Corpuscular Hemoglobin 23.8 pg (27.0-31.0); Mean Corpuscular Volume 79.7 fL (78.0-98.0); Platelet Count 56 10x3/uL (130-400); Red Blood Cell (RBC) Count 3.90 mill/uL (4.70-6.10); White Blood Cell (WBC) Count 6.35 10x3/uL (4.8-10.8)
[2025-04-14 04:50] LABS: ALT (SGPT) 37 U/L (Less than 45); AST (SGOT) 95 U/L (11-34); Albumin 2.2 g/dL (3.1-4.5); Alkaline Phosphatase 92 U/L (40-110); Anion Gap 13 mmol/L (10-20); BUN (Urea Nitrogen) 29 mg/dL (8.9-20.6); Bilirubin, Total 3.3 mg/dL (0.3-1.2); Calc. Creatinine Clearance 132 mL/min (70-130); Calcium 8.3 mg/dL (7.8-10.44); Carbon Dioxide 29 mmol/L (22-29); Chloride 107 mmol/L (98-107); Globulin 4.0 g/dL (2.4-3.5); Glucose 101 mg/dL (70-105); Potassium 3.6 mmol/L (3.5-5.1); Sodium 145 mmol/L (136-145)
[2025-04-14 05:40] LABS: Anisocytosis SLIGHT = 6-15 cells HPF (0-5); Burr Cells SLIGHT = 2-5 cells HPF (0-1); Microcytosis SLIGHT = 6-15 cells HPF (0-5); Platelet Adequacy Comment Platelets Decreased; Polychromasia SLIGHT = 2-3 cells HPF (0-2); Smudge Cells 20.8 %
[2025-04-15 07:27] LABS: Hematocrit 30.6 % (42.0-52.0); Hemoglobin 9.3 g/dL (14.0-18.0); Mean Corpuscular Hemoglobin 24.2 pg (27.0-31.0); Mean Corpuscular Volume 79.7 fL (78.0-98.0); Platelet Count 63 10x3/uL (130-400); Red Blood Cell (RBC) Count 3.84 mill/uL (4.70-6.10); White Blood Cell (WBC) Count 5.77 10x3/uL (4.8-10.8)
[2025-04-15 07:33] LABS: ALT (SGPT) 33 U/L (Less than 45); AST (SGOT) 77 U/L (11-34); Albumin 2.2 g/dL (3.1-4.5); Alkaline Phosphatase 100 U/L (40-110); Anion Gap 13 mmol/L (10-20); BUN (Urea Nitrogen) 32 mg/dL (8.9-20.6); Bilirubin, Total 4.2 mg/dL (0.3-1.2); Calc. Creatinine Clearance 109 mL/min (70-130); Calcium 8.6 mg/dL (7.8-10.44); Carbon Dioxide 28 mmol/L (22-29); Chloride 109 mmol/L (98-107); Globulin 4.5 g/dL (2.4-3.5); Glucose 124 mg/dL (70-105); Potassium 3.0 mmol/L (3.5-5.1); Sodium 147 mmol/L (136-145)
[2025-04-15] MEDS: Potassium Bicarbonate/Cit Ac 20 MEQ TAB PER TUBE SCH (08:46)
[2025-04-15 08:49] LABS: Anisocytosis SLIGHT = 6-15 cells HPF (0-5); Burr Cells SLIGHT = 2-5 cells HPF (0-1); Platelet Adequacy Comment Platelets Decreased; Polychromasia SLIGHT = 2-3 cells HPF (0-2); Smudge Cells 6.9 %
[2025-04-15 08:59] LABS: Actual Bicarbonate (HCO3a) 29.0 mEq/L (22-28); Base Excess (BEa) 5.7 mEq/L (-2.0 to +3.0); CO2 Tension 37.4 mmHg (35.0-45.0); Calcium, Ionized (arterial) 1.17 mmol/L (1.12-1.30); Hematocrit-ABG 32 % (42.0-52.0); Hemoglobin (Hb) 11.0 g/dL (14.0-18.0); Potassium - ABG Lab 3.39 mmol/L (3.70-5.30); pH, Arterial 7.508 (7.35-7.45)
[2025-04-15] MEDS: VANCOMYCIN 1.75 GM/350 ML BAG 1.75 GM in Premix 1 BAG IVPB SCH (13:47)
[2025-04-15] MEDS: Vancomycin 1 GM in Premix 1 BAG IVPB SCH (23:37)
[2025-04-16 04:19] LABS: #Basophils 0.04 10x3/uL (0.0-0.2); #Eosinophils 0.13 10x3/uL (0.0-0.7); #Monocytes 0.42 10x3/uL (0.11-0.59); #Neutrophils 4.92 10x3/uL (1.40-6.50); %Basophils 0.6 % (0.0-1.0); %Eosinophils 1.9 % (0.0-10.0); %Lymphocytes 18.5 % (21.0-51.0); %Monocytes 6.0 % (0.0-10.0); %Neutrophils 70.6 % (42.0-75.0); Hematocrit 30.0 % (42.0-52.0); Hemoglobin 9.1 g/dL (14.0-18.0); Mean Corpuscular Hemoglobin 24.9 pg (27.0-31.0); Mean Corpuscular Volume 82.0 fL (78.0-98.0); Platelet Count 66 10x3/uL (130-400); Red Blood Cell (RBC) Count 3.66 mill/uL (4.70-6.10); White Blood Cell (WBC) Count 6.97 10x3/uL (4.8-10.8)
[2025-04-16 04:30] LABS: Vancomycin, Random 32.3 ug/mL (See Comment)
[2025-04-16 04:32] LABS: Anion Gap 16 mmol/L (10-20); BUN (Urea Nitrogen) 31 mg/dL (8.9-20.6); Calc. Creatinine Clearance 99 mL/min (70-130); Calcium 8.3 mg/dL (7.8-10.44); Carbon Dioxide 26 mmol/L (22-29); Chloride 109 mmol/L (98-107); Glucose 136 mg/dL (70-105); Potassium 3.5 mmol/L (3.5-5.1); Sodium 147 mmol/L (136-145)
[2025-04-16 07:43] LABS: Actual Bicarbonate (HCO3a) 31.5 mEq/L (22-28); Base Excess (BEa) 6.6 mEq/L (-2.0 to +3.0); CO2 Tension 46.4 mmHg (35.0-45.0); Calcium, Ionized (arterial) 1.12 mmol/L (1.12-1.30); Hematocrit-ABG 29 % (42.0-52.0); Hemoglobin (Hb) 10.0 g/dL (14.0-18.0); O2 Tension (PaO2), arterial 68.3 mmHg (80.0-100.0); Potassium - ABG Lab 3.59 mmol/L (3.70-5.30); pH, Arterial 7.449 (7.35-7.45)
[2025-04-16] MEDS: Potassium Bicarbonate/Cit Ac 20 MEQ TAB PER TUBE SCH (12:46)
[2025-04-16 18:33] LABS: Potassium 3.7 mmol/L (3.5-5.1)
[2025-04-16] MEDS: VANCOMYCIN 1.75 GM/350 ML BAG 1.75 GM in Premix 1 BAG IVPB SCH (21:32)
[2025-04-17 05:14] LABS: #Basophils Less than 0.03 10x3/uL (0.0-0.2); #Eosinophils 0.25 10x3/uL (0.0-0.7); #Monocytes 0.31 10x3/uL (0.11-0.59); #Neutrophils 2.31 10x3/uL (1.40-6.50); %Basophils 0.5 % (0.0-1.0); %Eosinophils 6.7 % (0.0-10.0); %Lymphocytes 20.3 % (21.0-51.0); %Monocytes 8.3 % (0.0-10.0); %Neutrophils 61.8 % (42.0-75.0); Hematocrit 29.3 % (42.0-52.0); Hemoglobin 8.4 g/dL (14.0-18.0); Mean Corpuscular Hemoglobin 24.3 pg (27.0-31.0); Mean Corpuscular Volume 84.9 fL (78.0-98.0); Platelet Count 50 10x3/uL (130-400); Red Blood Cell (RBC) Count 3.45 mill/uL (4.70-6.10); White Blood Cell (WBC) Count 3.74 10x3/uL (4.8-10.8)
[2025-04-17 05:48] LABS: Vancomycin, Random 25.2 ug/mL (See Comment)
[2025-04-17 05:50] LABS: Anion Gap 11 mmol/L (10-20); BUN (Urea Nitrogen) 24 mg/dL (8.9-20.6); Calc. Creatinine Clearance 128 mL/min (70-130); Calcium 8.3 mg/dL (7.8-10.44); Carbon Dioxide 29 mmol/L (22-29); Chloride 112 mmol/L (98-107); Glucose 107 mg/dL (70-105); Potassium 3.8 mmol/L (3.5-5.1); Sodium 148 mmol/L (136-145)
[2025-04-17 07:06] LABS: Actual Bicarbonate (HCO3a) 30.8 mEq/L (22-28); Base Excess (BEa) 4.8 mEq/L (-2.0 to +3.0); CO2 Tension 51.3 mmHg (35.0-45.0); Calcium, Ionized (arterial) 1.18 mmol/L (1.12-1.30); Hematocrit-ABG 38 % (42.0-52.0); Hemoglobin (Hb) 12.8 g/dL (14.0-18.0); O2 Tension (PaO2), arterial 61.0 mmHg (80.0-100.0); Potassium - ABG Lab 3.68 mmol/L (3.70-5.30); pH, Arterial 7.396 (7.35-7.45)
[2025-04-17 07:07] LABS: ALV-art Gradient 302.675 mmHg (0-20); Puncture Site Right Radial artery
[2025-04-17] MEDS: Midazolam In 0.9 % NaCl/PF 100 ML IVPB SCH (10:48)
[2025-04-18 05:17] LABS: #Basophils Less than 0.03 10x3/uL (0.0-0.2); #Eosinophils 0.20 10x3/uL (0.0-0.7); #Monocytes 0.30 10x3/uL (0.11-0.59); #Neutrophils 1.68 10x3/uL (1.40-6.50); %Basophils 0.3 % (0.0-1.0); %Eosinophils 7.0 % (0.0-10.0); %Lymphocytes 19.6 % (21.0-51.0); %Monocytes 10.5 % (0.0-10.0); %Neutrophils 58.8 % (42.0-75.0); Hematocrit 28.4 % (42.0-52.0); Hemoglobin 8.1 g/dL (14.0-18.0); Mean Corpuscular Hemoglobin 24.2 pg (27.0-31.0); Mean Corpuscular Volume 84.8 fL (78.0-98.0); Platelet Count 47 10x3/uL (130-400); Red Blood Cell (RBC) Count 3.35 mill/uL (4.70-6.10); White Blood Cell (WBC) Count 2.86 10x3/uL (4.8-10.8)
[2025-04-18 05:34] LABS: Anion Gap 12 mmol/L (10-20); BUN (Urea Nitrogen) 23 mg/dL (8.9-20.6); Calc. Creatinine Clearance 128 mL/min (70-130); Calcium 8.3 mg/dL (7.8-10.44); Carbon Dioxide 30 mmol/L (22-29); Chloride 110 mmol/L (98-107); Glucose 123 mg/dL (70-105); Potassium 4.1 mmol/L (3.5-5.1); Sodium 148 mmol/L (136-145)
[2025-04-18 07:45] LABS: Actual Bicarbonate (HCO3a) 30.9 mEq/L (22-28); Base Excess (BEa) 5.5 mEq/L (-2.0 to +3.0); CO2 Tension 49.6 mmHg (35.0-45.0); Calcium, Ionized (arterial) 1.20 mmol/L (1.12-1.30); Hematocrit-ABG 32 % (42.0-52.0); Hemoglobin (Hb) 10.8 g/dL (14.0-18.0); O2 Tension (PaO2), arterial 68.8 mmHg (80.0-100.0); Potassium - ABG Lab 4.14 mmol/L (3.70-5.30); pH, Arterial 7.413 (7.35-7.45)
[2025-04-18 07:51] LABS: ALV-art Gradient 546.550 mmHg (0-20); Puncture Site Right Radial artery
[2025-04-18 13:48] LABS: O2 Tension (PaO2), arterial 48.5 mmHg (80.0-100.0)
[2025-04-19 04:26] LABS: #Basophils Less than 0.03 10x3/uL (0.0-0.2); #Eosinophils 0.20 10x3/uL (0.0-0.7); #Monocytes 0.26 10x3/uL (0.11-0.59); #Neutrophils 1.73 10x3/uL (1.40-6.50); %Basophils 0.3 % (0.0-1.0); %Eosinophils 6.8 % (0.0-10.0); %Lymphocytes 20.7 % (21.0-51.0); %Monocytes 8.8 % (0.0-10.0); %Neutrophils 58.7 % (42.0-75.0); Hematocrit 27.1 % (42.0-52.0); Hemoglobin 7.8 g/dL (14.0-18.0); Mean Corpuscular Hemoglobin 24.7 pg (27.0-31.0); Mean Corpuscular Volume 85.8 fL (78.0-98.0); Platelet Count 45 10x3/uL (130-400); Red Blood Cell (RBC) Count 3.16 mill/uL (4.70-6.10); White Blood Cell (WBC) Count 2.95 10x3/uL (4.8-10.8)
[2025-04-19 04:34] LABS: Anion Gap 12 mmol/L (10-20); BUN (Urea Nitrogen) 26 mg/dL (8.9-20.6); Calc. Creatinine Clearance 137 mL/min (70-130); Calcium 8.2 mg/dL (7.8-10.44); Carbon Dioxide 29 mmol/L (22-29); Chloride 109 mmol/L (98-107); Glucose 112 mg/dL (70-105); Potassium 4.2 mmol/L (3.5-5.1); Sodium 146 mmol/L (136-145)
[2025-04-20 03:55] LABS: #Basophils Less than 0.03 10x3/uL (0.0-0.2); #Eosinophils 0.19 10x3/uL (0.0-0.7); #Monocytes 0.24 10x3/uL (0.11-0.59); #Neutrophils 2.00 10x3/uL (1.40-6.50); %Basophils 0.3 % (0.0-1.0); %Eosinophils 6.2 % (0.0-10.0); %Lymphocytes 18.5 % (21.0-51.0); %Monocytes 7.8 % (0.0-10.0); %Neutrophils 64.9 % (42.0-75.0)
[2025-04-20 04:00] LABS: Anion Gap 7 mmol/L (10-20); BUN (Urea Nitrogen) 28 mg/dL (8.9-20.6); Calc. Creatinine Clearance 129 mL/min (70-130); Calcium 8.5 mg/dL (7.8-10.44); Carbon Dioxide 32 mmol/L (22-29); Chloride 112 mmol/L (98-107); Glucose 125 mg/dL (70-105); Potassium 4.3 mmol/L (3.5-5.1); Sodium 147 mmol/L (136-145)
[2025-04-20 04:10] LABS: Hematocrit 26.5 % (42.0-52.0); Hemoglobin 7.7 g/dL (14.0-18.0); Mean Corpuscular Hemoglobin 25.0 pg (27.0-31.0); Mean Corpuscular Volume 86.0 fL (78.0-98.0); Platelet Count 41 10x3/uL (130-400); Red Blood Cell (RBC) Count 3.08 mill/uL (4.70-6.10); White Blood Cell (WBC) Count 3.07 10x3/uL (4.8-10.8)
[2025-04-21 05:09] LABS: #Basophils Less than 0.03 10x3/uL (0.0-0.2); #Eosinophils 0.10 10x3/uL (0.0-0.7); #Monocytes 0.18 10x3/uL (0.11-0.59); #Neutrophils 1.48 10x3/uL (1.40-6.50); %Basophils 0.4 % (0.0-1.0); %Eosinophils 4.4 % (0.0-10.0); %Lymphocytes 20.6 % (21.0-51.0); %Monocytes 7.9 % (0.0-10.0); %Neutrophils 64.9 % (42.0-75.0); Hematocrit 25.1 % (42.0-52.0); Hemoglobin 7.3 g/dL (14.0-18.0); Mean Corpuscular Hemoglobin 25.1 pg (27.0-31.0); Mean Corpuscular Volume 86.3 fL (78.0-98.0); Platelet Count 38 10x3/uL (130-400); Red Blood Cell (RBC) Count 2.91 mill/uL (4.70-6.10); White Blood Cell (WBC) Count 2.28 10x3/uL (4.8-10.8)
[2025-04-21 05:14] LABS: Anion Gap 10 mmol/L (10-20); BUN (Urea Nitrogen) 29 mg/dL (8.9-20.6); Calc. Creatinine Clearance 143 mL/min (70-130); Calcium 8.4 mg/dL (7.8-10.44); Carbon Dioxide 29 mmol/L (22-29); Chloride 116 mmol/L (98-107); Glucose 127 mg/dL (70-105); Potassium 3.5 mmol/L (3.5-5.1); Sodium 151 mmol/L (136-145)
[2025-04-21] MEDS ORDERED: Melatonin 3 MG TAB PER TUBE PRN (08:41)
[2025-04-21] MEDS: Potassium Bicarbonate/Cit Ac 20 MEQ TAB PER TUBE SCH (10:11)
[2025-04-21] MEDS: Acetaminophen 325 MG TAB PER TUBE PRN (10:11)
[2025-04-21] MEDS: Lactulose 20 GM (30 mL) UDCUP PER TUBE SCH (10:32)
[2025-04-21] MEDS: Glycopyrrolate 0.4 MG/ 2 ML VIAL SLOW IVP PRN (12:09)
[2025-04-21 12:36] VITALS: BMI 31.5
[2025-04-21 19:19] VITALS: BP 132/61; TEMP 99.5
[2025-04-22] MEDS ORDERED: Potassium Bicarbonate/Cit Ac 20 MEQ TAB PER TUBE SCH (08:00)
== END 2025-04-22 01:20 | disposition expired | DRG 870 ==
LOC: ERS 12:11 → OBSVTOIN 16:37 → T4-A 16:37 → IMCU/EMU 04-02 15:34 → CCU 04-05 12:50 → MSONC 04-21 17:57
PROVIDERS: ADMIT Internal Medicine; ATTEND Internal Medicine
PROC: 3E03329 Introduction of Other Anti-infective into Peripheral Vein, Percutaneous Approach (ICD-10-PCS; 2025-03-31)
PROC: 3E0234Z Introduction of Serum, Toxoid and Vaccine into Muscle, Percutaneous Approach (ICD-10-PCS; 2025-03-31)
PROC: 30233N1 Transfusion of Nonautologous Red Blood Cells into Peripheral Vein, Percutaneous Approach (ICD-10-PCS; 2025-04-01)
PROC: 6A550Z2 Pheresis of Platelets, Single (ICD-10-PCS; 2025-04-01)
PROC: 5A09357 Assistance with Respiratory Ventilation, Less than 24 Consecutive Hours, Continuous Positive Airway Pressure (ICD-10-PCS; 2025-04-02)
PROC: 4A133R1 Monitoring of Arterial Saturation, Peripheral, Percutaneous Approach (ICD-10-PCS; 2025-04-03)
PROC: 3E03329 Introduction of Other Anti-infective into Peripheral Vein, Percutaneous Approach (ICD-10-PCS; 2025-04-03)
PROC: 30233J1 Transfusion of Nonautologous Serum Albumin into Peripheral Vein, Percutaneous Approach (ICD-10-PCS; 2025-04-03)
PROC: 5A0935A Assistance with Respiratory Ventilation, Less than 24 Consecutive Hours, High Flow/Velocity Cannula (ICD-10-PCS; 2025-04-03)
PROC: 5A0945A Assistance with Respiratory Ventilation, 24-96 Consecutive Hours, High Flow/Velocity Cannula (ICD-10-PCS; 2025-04-04)
PROC: 0T9B70Z Drainage of Bladder with Drainage Device, Via Natural or Artificial Opening (ICD-10-PCS; 2025-04-05)
PROC: 0DH67UZ Insertion of Feeding Device into Stomach, Via Natural or Artificial Opening (ICD-10-PCS; 2025-04-07)
PROC: 3E0G76Z Introduction of Nutritional Substance into Upper GI, Via Natural or Artificial Opening (ICD-10-PCS; 2025-04-07)
PROC: 0B9F8ZX Drainage of Right Lower Lung Lobe, Via Natural or Artificial Opening Endoscopic, Diagnostic (ICD-10-PCS; 2025-04-09)
PROC: 0B9D8ZX Drainage of Right Middle Lung Lobe, Via Natural or Artificial Opening Endoscopic, Diagnostic (ICD-10-PCS; 2025-04-09)
PROC: 5A1955Z Respiratory Ventilation, Greater than 96 Consecutive Hours (ICD-10-PCS; principal; 2025-04-12)
PROC: 0BH18EZ Insertion of Endotracheal Airway into Trachea, Via Natural or Artificial Opening Endoscopic (ICD-10-PCS; principal; 2025-04-12)
PROC: 05HY33Z Insertion of Infusion Device into Upper Vein, Percutaneous Approach (ICD-10-PCS; 2025-04-15)
DX: A41.59 Other Gram-negative sepsis (principal); G93.41 Metabolic encephalopathy; R65.21 Severe sepsis with septic shock; J80 Acute respiratory distress syndrome; I50.23 Acute on chronic systolic (congestive) heart failure; J15.8 Pneumonia due to other specified bacteria; L03.116 Cellulitis of left lower limb; I85.10 Secondary esophageal varices without bleeding; E87.21 Acute metabolic acidosis; E87.1 Hypo-osmolality and hyponatremia; K76.6 Portal hypertension; D61.818 Other pancytopenia; I42.8 Other cardiomyopathies; Z66 Do not resuscitate; Z51.5 Encounter for palliative care; F41.9 Anxiety disorder, unspecified; R74.01 Elevation of levels of liver transaminase levels; R04.0 Epistaxis; K31.89 Other diseases of stomach and duodenum; R16.1 Splenomegaly, not elsewhere classified; E83.42 Hypomagnesemia; K70.31 Alcoholic cirrhosis of liver with ascites; E87.6 Hypokalemia; D69.6 Thrombocytopenia, unspecified; Z98.890 Other specified postprocedural states; Z87.891 Personal history of nicotine dependence; Z23 Encounter for immunization
CPT/HCPCS: 36415; 36430; 36600; 71045; 76705; 80048; 80053; 80202; 81001; 82607; 82728; 82805; 83540; 83550; 83605; 83690; 83735; 83880; 84145; 84443; 84484; 85025; 85060; 85610; 85730; 86141; 86704; 86706; 86803; 86850; 86900; 86901; 87040; 87070; 87077; 87081; 87086; 87186; 87205; 87340; 87389; 87636; 88184; 93005; 93010; 93306; 94002; 94003; 94660; 96365; 96366; 96367; 96368; 97139; J0456; J0692; J1650; J1940; J2060; J2183; J2248; J2250; J2470; J2704; J3373; J3375; J3475; J3480; J7030; J7050; J7070; P9035; P9047; Q9967